=== PATIENT | female | born 2000 | race Caucasian/White ===

== ENCOUNTER → 2022-01-29 | Outpatient (CLI) | payer OTHER ==
[2022-01-29 15:36] LABS: HEMATOCRIT 33.1 % (36.0-47.0); HEMOGLOBIN 10.9 g/dl (12.0-15.5); MEAN CORPUSCULAR HEMOGLOBIN 29.3 pg (27.0-33.0); MEAN CORPUSCULAR HGB CONC 32.9 g/dl (32.0-36.5); PLATELET COUNT, AUTOMATED 298 10^3/uL (150-450); RED BLOOD COUNT 3.72 10^6/uL (4.00-5.40); WHITE BLOOD COUNT 7.8 10^3/uL (4.0-10.0)
[2022-01-29 16:01] LABS: GLUCOSE CHALLENGE TEST 1 HOUR 94 MG/DL (LESS THAN 140)
[2022-01-29 16:38] LABS: HEPATITIS B SURFACE ANTIGEN NEGATIVE (NEGATIVE)
[2022-01-29 17:03] LABS: GC DNA AMPLIFICATION NEGATIVE (NEGATIVE)
== END ==
LOC: M PLALAB 11:49
PROVIDERS: ATTEND Advanced Practice Midwife
DX: Z34.83 Encounter for supervision of other normal pregnancy, third trimester (principal)

== ENCOUNTER → 2022-03-18 | Outpatient (REF) | payer OTHER ==
[2022-03-18 15:08] LABS: GC DNA AMPLIFICATION NEGATIVE (NEGATIVE)
== END ==
LOC: M PLALAB 10:04
PROVIDERS: ATTEND Specialist
DX: Z34.83 Encounter for supervision of other normal pregnancy, third trimester (principal)

== ENCOUNTER 2022-03-25 01:02 | Inpatient (IN) | payer OTHER ==
[2022-03-25] VITALS (15 sets, daily range): BP systolic 121–163; BP diastolic 61–99
[~2022-03-25] VITALS: Ht 157.5 cm; Wt 68.3 kg
[2022-03-25] MEDS ORDERED: LACTATED RINGER'S 1000 ML IV STA (01:13)
[2022-03-25] MEDS ORDERED: PENICILLIN G POTASSIUM IV 5 MU in D5W MINI-BAG PLUS 100 ML IV STA (01:13)
[2022-03-25] MEDS ORDERED: LIDOCAINE 1% MDV 20ML VIAL INFIL PRN (01:15)
[2022-03-25] MEDS ORDERED: CARBOPROST TROMETHAMINE 250 MCG/ML AMP IM PRN (01:15)
[2022-03-25] MEDS ORDERED: METHYLERGONOVINE MALEATE 0.2 MG/ML VIAL (J2210) IM PRN (01:15)
[2022-03-25] MEDS ORDERED: TRANEXAMIC ACID INJection 1,000 MG in NS 100 ML IV PRN (01:15)
[2022-03-25] MEDS ORDERED: OXYTOCIN INJ 10 UNITS/ML VIAL (J2590) IM PRN (01:15)
[2022-03-25] MEDS ORDERED: OXYTOCIN DRIP 30 UNITS in IV 1 EA IV PRN (01:15)
[2022-03-25 01:55] LABS: HEMATOCRIT 33.9 % (36.0-47.0); HEMOGLOBIN 10.8 g/dl (12.0-15.5); MEAN CORPUSCULAR HEMOGLOBIN 25.8 pg (27.0-33.0); MEAN CORPUSCULAR HGB CONC 31.9 g/dl (32.0-36.5); MEAN CORPUSCULAR VOLUME 80.9 fl (80.0-96.0); PLATELET COUNT, AUTOMATED 329 10^3/uL (150-450); RED BLOOD COUNT 4.19 10^6/uL (4.00-5.40); WHITE BLOOD COUNT 12.1 10^3/uL (4.0-10.0)
[2022-03-25] MEDS ORDERED: DIBUCAINE 1% OINTMENT 30GM TOP PRN (03:20)
[2022-03-25] MEDS ORDERED: ANUSOL HC CREAM 30GM TOP PRN (03:20)
[2022-03-25] MEDS ORDERED: RHOGAM 300 MCG (1500 IU) INJ (J2790) IM SCH (03:20)
[2022-03-25] MEDS ORDERED: IBUPROFEN 600MG TAB PO PRN (03:20)
[2022-03-25] MEDS ORDERED: DOCUSATE SODIUM 100MG CAPSULE PO PRN (03:20)
[2022-03-25] MEDS ORDERED: MOM 30ML SUSPENSION UDC PO PRN (03:20)
[2022-03-25] MEDS ORDERED: ACETAMINOPHEN 500 MG TAB PO PRN (03:20)
[2022-03-25] MEDS ORDERED: ACETAMINOPHEN TAB 650MG DOSE (2X325MG) PO PRN (03:20)
[2022-03-25] MEDS ORDERED: KETOROLAC 30 MG/ML 1ML VIAL IV ONE (04:00)
[2022-03-25] MEDS ORDERED: ACET325C5 PO (04:30)
[2022-03-25] MEDS ORDERED: HOME MED LIST COMPLETE! XX SCH (04:30)
[2022-03-25] MEDS ORDERED: PRENTAB9 PO (04:30)
[2022-03-25] MEDS ORDERED: PENICILLIN G POTASSIUM IV 2.5 MU in IV 1 EA IV SCH (06:00)
[2022-03-25] MEDS: PRENATAL VITAMINS CHEWABLE TABLET PO SCH (08:40)
[2022-03-25] MEDS ORDERED: IBUPROFEN 800 MG TAB PO PRN (12:00)
[2022-03-26 06:00] VITALS: BP 120/58
[2022-03-26] MEDS: PRENATAL VITAMINS CHEWABLE TABLET PO SCH (09:15)
[2022-03-27] MEDS ORDERED: MEASLES,MUMPS,RUBELLA VACCINE INJ (MMR-II) (90707) SC.IMMUN ONE (09:00)
== END 2022-03-26 18:50 | disposition home or self-care (01) | DRG 560 ==
LOC: M LDO 01:02 → M LDI 01:20 → M OBS 06:13
PROVIDERS: ADMIT Advanced Practice Midwife; ATTEND Advanced Practice Midwife
PROC: 10E0XZZ Delivery of Products of Conception, External Approach (ICD-10-PCS; principal; 2022-03-25)
PROC: 0HQ9XZZ Repair Perineum Skin, External Approach (ICD-10-PCS; 2022-03-25)
DX: O62.3 Precipitate labor (principal); Z3A.37 37 weeks gestation of pregnancy; Z37.0 Single live birth; O99.824 Streptococcus B carrier state complicating childbirth; O70.0 First degree perineal laceration during delivery; O69.89X0 Labor and delivery complicated by other cord complications, not applicable or unspecified

== ENCOUNTER 2023-01-29 19:18 | Emergency (ER) | payer OTHER ==
[~2023-01-29] VITALS: Ht 165.1 cm; Wt 94.7 kg
[~2023-01-29 19:18] MED LIST: ACET325C5 PO; PRENTAB9 PO
[2023-01-29] MEDS ORDERED: ACET-683 PO (19:28)
[2023-01-29] MEDS ORDERED: LIDOCAINE 2% W/ EPINEPHRINE 1.7 ML DENTAL INJ SM ONE (20:25)
[2023-01-29] MEDS ORDERED: BENZOCAINE 20% GEL 9GM TUBE (ANBESOL MAX STRENGTH) TOP ONE (20:25)
[2023-01-29] MEDS ORDERED: AMOX875T2 PO (20:54)
[2023-01-29] MEDS ORDERED: AUGMENTIN 875 MG TAB PO ONE (20:55)
[2023-01-29] MEDS ORDERED: RA A MT (20:56)
[2023-01-29 21:19] VITALS: BP 127/62; TEMP 98; O2SAT 100
== END 2023-01-29 21:21 | disposition home or self-care (01) ==
LOC: M ED 19:18
DX: S02.5XXA Fracture of tooth (traumatic), initial encounter for closed fracture (principal); R68.84 Jaw pain; X58.XXXA Exposure to other specified factors, initial encounter; Y92.89 Other specified places as the place of occurrence of the external cause; F17.290 Nicotine dependence, other tobacco product, uncomplicated